=== PATIENT | female | born 1980 | race African-American/Black ===

== ENCOUNTER 2020-01-24 23:53 | Emergency (ER) | payer OTHER, SELFPAY ==
[~2020-01-24] VITALS: Ht 165.1 cm; Wt 86.2 kg
[~2020-01-24 23:53] MED LIST: CIPRO250 MG PO; HYDROCHLOROTH12.5 M2 PO; LAC PO; MOTRIN800 MG PO
[2020-01-24 23:54] VITALS: Ht 165.1 cm; Wt 86.2 kg
[2020-01-25 02:07] VITALS: BP 168/90
== END 2020-01-25 02:07 | disposition home or self-care (01) ==
LOC: ED 23:53
DX: J40 Bronchitis, not specified as acute or chronic (principal); I10 Essential (primary) hypertension; Z88.0 Allergy status to penicillin; Z98.890 Other specified postprocedural states; Z20.828 Contact with and (suspected) exposure to other viral communicable diseases
CPT/HCPCS: 87804; Q0092

== ENCOUNTER 2020-03-02 04:49 | Emergency (ER) | payer OTHER ==
[~2020-03-02] VITALS: Ht 165.1 cm; Wt 87.1 kg
[2020-03-02 05:01] VITALS: Ht 165.1 cm; Wt 87.1 kg
[2020-03-02 08:06] VITALS: BP 126/79
== END 2020-03-02 08:07 | disposition home or self-care (01) ==
LOC: ED 04:49
DX: G44.209 Tension-type headache, unspecified, not intractable (principal); I16.0 Hypertensive urgency; Z88.0 Allergy status to penicillin
CPT/HCPCS: J0780; J1885; J3010; Q0162

== ENCOUNTER 2020-06-24 19:32 | Emergency (ER) | payer OTHER ==
[~2020-06-24] VITALS: Ht 165.1 cm; Wt 86.2 kg
[2020-06-24 19:40] VITALS: Ht 165.1 cm; Wt 86.2 kg
[2020-06-24 20:25] LABS: microscopic required? NO
[2020-06-24 20:43] LABS: ALBUMIN 3.8 g/dL (3.4-5.0); ALKALINE PHOSPHATASE 91 U/L (46-116); ALT/SGPT 20 U/L (14-59); AST/SGOT 10 U/L (15-37); BILIRUBIN TOTAL 0.25 mg/dL (0.20-1.00); CALCIUM 8.5 mg/dL (8.5-10.1); CARBON DIOXIDE 31.7 mmol/L (21-32); CHLORIDE SERUM 100 mmol/L (98-107); CREATININE SERUM 0.8 mg/dL (0.6-1.0); GFR1 > 60 mL/min; GLUCOSE SERUM 90 mg/dL (74-106); LIPASE 146 IU/L (73-393); POTASSIUM SERUM 3.5 mmol/L (3.5-5.1); SODIUM SERUM 136 mmol/L (136-145); TOTAL PROTEIN, SERUM 7.3 g/dL (6.4-8.2)
[2020-06-24 20:44] LABS: BASOPHIL % 0.6 % (0-2); PLATELET COUNT 380 x10^3mcL (130-400)
[2020-06-24 20:45] LABS: RED CELL DISTRIBUTION WIDTH 14.6 % (11.5-14.5)
[2020-06-24 20:49] LABS: urine erythrocyte NEGATIVE (NEGATIVE)
[2020-06-24 23:17] VITALS: BP 158/91
== END 2020-06-24 23:17 | disposition home or self-care (01) ==
LOC: ED 19:32
PROVIDERS: Emergency Medicine
DX: N83.202 Unspecified ovarian cyst, left side (principal); I10 Essential (primary) hypertension; Z88.0 Allergy status to penicillin

== ENCOUNTER 2020-08-05 11:09 | Emergency (ER) | payer OTHER ==
[~2020-08-05] VITALS: Ht 165.1 cm; Wt 85.7 kg
[2020-08-05 11:18] VITALS: Ht 165.1 cm; Wt 85.7 kg
[2020-08-05 13:29] LABS: BASOPHIL % 0.3 % (0-2); PLATELET COUNT 348 x10^3mcL (130-400); RED CELL DISTRIBUTION WIDTH 14.4 % (11.5-14.5)
[2020-08-05 14:04] LABS: ALKALINE PHOSPHATASE 82 U/L (46-116); ALT/SGPT 20 U/L (14-59); AST/SGOT 13 U/L (15-37); BILIRUBIN TOTAL 0.44 mg/dL (0.20-1.00); CALCIUM 9.1 mg/dL (8.5-10.1); CARBON DIOXIDE 29.2 mmol/L (21-32); CHLORIDE SERUM 100 mmol/L (98-107); CREATININE SERUM 0.8 mg/dL (0.6-1.0); GFR1 > 60 mL/min; GLUCOSE SERUM 87 mg/dL (74-106); LIPASE 108 IU/L (73-393); SODIUM SERUM 140 mmol/L (136-145); TOTAL PROTEIN, SERUM 7.9 g/dL (6.4-8.2)
[2020-08-05 15:17] VITALS: BP 144/77
== END 2020-08-05 15:18 | disposition home or self-care (01) ==
LOC: ED 11:09
PROVIDERS: Emergency Medicine
DX: N39.0 Urinary tract infection, site not specified (principal); N83.202 Unspecified ovarian cyst, left side
CPT/HCPCS: J2270; J2405; J7030

== ENCOUNTER 2020-10-14 16:51 | Emergency (ER) | payer OTHER ==
[~2020-10-14] VITALS: Ht 165.1 cm; Wt 84.8 kg
[2020-10-14 17:18] VITALS: Ht 165.1 cm; Wt 84.8 kg
[2020-10-14 19:19] LABS: RED CELL DISTRIBUTION WIDTH 13.8 % (12.3-17.7)
[2020-10-14 19:22] LABS: BASOPHIL % 2.8 % (0.2-1.3); PLATELET COUNT 434 x10^3mcL (179-408)
[2020-10-14 19:47] LABS: CALCIUM 8.3 mg/dL (8.5-10.1); CARBON DIOXIDE 31.6 mmol/L (21-32); CHLORIDE SERUM 100 mmol/L (98-107); CREATININE SERUM 0.7 mg/dL (0.6-1.0); GFR1 > 60 mL/min; GLUCOSE SERUM 95 mg/dL (74-106); POTASSIUM SERUM 3.5 mmol/L (3.5-5.1); SODIUM SERUM 138 mmol/L (136-145)
[2020-10-14 19:51] LABS: ALBUMIN 3.6 g/dL (3.4-5.0); ALKALINE PHOSPHATASE 93 U/L (46-116); ALT/SGPT 28 U/L (14-59); AMYLASE 58 U/L (25-115); AST/SGOT 14 U/L (15-37); BILIRUBIN TOTAL 0.2 mg/dL (0.20-1.00); LIPASE 105 IU/L (73-393); TOTAL PROTEIN, SERUM 7.3 g/dL (6.4-8.2)
[2020-10-14 20:48] LABS: microscopic required? NO
[2020-10-14 20:54] LABS: UA SPECIFIC GRAVITY 1.015 (1.005-1.035); urine erythrocyte NEGATIVE (NEGATIVE)
[2020-10-14 23:46] VITALS: BP 143/90
== END 2020-10-14 23:46 | disposition home or self-care (01) ==
LOC: ED 16:51
PROVIDERS: Specialist
DX: R10.33 Periumbilical pain (principal); I10 Essential (primary) hypertension; Z90.721 Acquired absence of ovaries, unilateral; Z88.0 Allergy status to penicillin
CPT/HCPCS: J1885; J7030; Q9967